=== PATIENT | male | born 1935 | race Caucasian/White ===

== ENCOUNTER 2022-03-05 08:51 | Inpatient (IN) | payer OTHER ==
[~2022-03-05] VITALS: Ht 175.3 cm; Wt 103.4 kg
[2022-03-05 09:00] VITALS: BP_SYST 140
[2022-03-05 10:16] LABS: BASOPHILS % (AUTO) 0.4 % (0.0-2.0); EOSINOPHILS # (AUTO) 0.1 K/uL (0.0-0.4); HEMATOCRIT 32.2 % (36-54); HEMOGLOBIN 10.6 g/dL (14.0-18.0); LYMPHOCYTES # (AUTO) 0.9 K/uL (1.0-5.5); LYMPHOCYTES % (AUTO) 20.2 % (20.5-51.5); MEAN CORPUSCULAR HEMOGLOBIN 33 pg (27-31); MEAN CORPUSCULAR HGB CONC 33 % (32-36); MEAN CORPUSCULAR VOLUME 99 fL (79.0-98.0); MONOCYTES # (AUTO) 0.5 K/uL (0.0-1.0); MONOCYTES % (AUTO) 12.2 % (1.7-9.3); NEUTROPHILS # (AUTO) 2.8 K/uL (1.8-7.7); NEUTROPHILS % (AUTO) 65.2 % (40.0-70.0); PLATELET COUNT (AUTO) 120 K/uL (130-430); RED BLOOD CELL COUNT(AUTO) 3.26 MIL/uL (4.2-6.2); RED CELL DISTRIBUTION WIDTH 14.8 % (9.0-15.0); WHITE BLOOD COUNT (AUTO) 4.2 K/uL (4.8-10.8)
[2022-03-05 10:33] LABS: ANION GAP 7 (5-15); CALCIUM 8.9 mg/dL (8.4-11.0); CHLORIDE 112 mmol/L (98-107); CREATININE 1.12 mg/dL (0.55-1.30); GLUCOSE 95 mg/dL (70-99); UREA NITROGEN, BLOOD 26 mg/dL (8-21)
[2022-03-05 10:38] LABS: ALANINE AMINOTRANSFERASE 6 U/L (12-78); ALBUMIN 3.3 g/dL (3.4-4.8); ASPARTATE AMINOTRANSFERASE 32 U/L (10-37); C-REACTIVE PROTEIN QUANT 1.3 mg/dL (0-0.5); TOTAL BILIRUBIN 1.7 mg/dL (0.0-1.0)
[2022-03-05] MEDS ORDERED: MORPHINE 4 MG INJ. 4 MG/ML VIAL IM ONE (11:00)
[2022-03-05] MEDS ORDERED: CARB1TAB33 PO (12:47)
[2022-03-05] MEDS ORDERED: APIX5TAB PO (12:47)
[2022-03-05] MEDS ORDERED: CILO100T3 PO (12:47)
[2022-03-05] MEDS ORDERED: HYT1 PO (12:47)
[2022-03-05] MEDS ORDERED: AMOX250S64 PO (12:47)
[2022-03-05] MEDS ORDERED: LIP20 PO (12:57)
[2022-03-05] MEDS ORDERED: LISI20TA30 PO (12:57)
[2022-03-05] MEDS ORDERED: FUROSEMIDE 100 MG in D5W 90 ML IV SCH (14:30)
[2022-03-05] MEDS ORDERED: ISOSORBIDE MONONITRATE 30 MG TAB.ER.24H PO ONE (17:00)
[2022-03-05] MEDS ORDERED: HYDROmorphone 1 MG/ML INJ. CARTRIDGE IVP ONE (18:45)
[2022-03-05] MEDS ORDERED: HYDROmorphone 1 MG/ML INJ. CARTRIDGE ONE (19:11)
[2022-03-05] MEDS ORDERED: ATORVASTATIN 20 MG TABLET PO SCH (21:00)
[2022-03-05] MEDS ORDERED: CEFAZOLIN 2 GM IVPB PREMIX 100 ML IV ONE (22:40)
[2022-03-05] MEDS: TERAZOSIN HCL 5 MG CAPSULE (HYTRIN) PO SCH (23:19)
[2022-03-05] MEDS: ceFAZolin SODIUM 2 GM in D5W 100 ML IV SCH (23:19)
[2022-03-05] MEDS: CARBIDOPA/LEVODOPA 25/100 MG TABLET PO SCH (23:20)
[2022-03-05] MEDS: ATORVASTATIN 20 MG TABLET PO SCH (23:20)
[2022-03-06] VITALS: BP_SYST 137
[2022-03-06] MEDS: ceFAZolin SODIUM 2 GM in D5W 100 ML IV SCH ×3 (05:23→21:37)
[2022-03-06 08:10] VITALS: BP_SYST 128
[2022-03-06 08:20] LABS: BASOPHILS % (AUTO) 0.6 % (0.0-2.0); EOSINOPHILS # (AUTO) 0.1 K/uL (0.0-0.4); EOSINOPHILS % (AUTO) 1.4 % (0.0-4.0); HEMATOCRIT 31.3 % (36-54); HEMOGLOBIN 10.3 g/dL (14.0-18.0); LYMPHOCYTES % (AUTO) 18.6 % (20.5-51.5); MEAN CORPUSCULAR HEMOGLOBIN 32 pg (27-31); MEAN CORPUSCULAR HGB CONC 33 % (32-36); MONOCYTES # (AUTO) 0.7 K/uL (0.0-1.0); MONOCYTES % (AUTO) 13.8 % (1.7-9.3); NEUTROPHILS # (AUTO) 3.4 K/uL (1.8-7.7); NEUTROPHILS % (AUTO) 65.6 % (40.0-70.0); PLATELET COUNT (AUTO) 135 K/uL (130-430); RED BLOOD CELL COUNT(AUTO) 3.21 MIL/uL (4.2-6.2); RED CELL DISTRIBUTION WIDTH 14.5 % (9.0-15.0); WHITE BLOOD COUNT (AUTO) 5.2 K/uL (4.8-10.8)
[2022-03-06 08:22] LABS: ANION GAP 8 (5-15); CALCIUM 8.9 mg/dL (8.4-11.0); CHLORIDE 105 mmol/L (98-107); CREATININE 1.51 mg/dL (0.55-1.30); GLUCOSE 93 mg/dL (70-99); UREA NITROGEN, BLOOD 27 mg/dL (8-21)
[2022-03-06 08:29] LABS: MEAN CORPUSCULAR VOLUME 97 fL (79.0-98.0)
[2022-03-06] MEDS: ISOSORBIDE MONONITRATE 30 MG TAB.ER.24H PO SCH (09:00)
[2022-03-06] MEDS: lisinopriL 20 MG TABLET PO SCH (09:00)
[2022-03-06] MEDS: LIDOCAINE PATCH 5% 1 EA TP SCH (09:52)
[2022-03-06] MEDS: CARBIDOPA/LEVODOPA 25/100 MG TABLET PO SCH (09:52)
[2022-03-06] MEDS ORDERED: APIXABAN 2.5 MG TABLET PO ONE (11:30)
[2022-03-06 11:40] VITALS: BP_SYST 126
[2022-03-06] MEDS ORDERED: KETOROLAC TROMETHAMINE 15 MG VIAL IVP ONE (12:45)
[2022-03-06 15:55] VITALS: BP_SYST 118
[2022-03-06] MEDS: CARBIDOPA/LEVODOPA 25/250 MG TABLET PO SCH ×2 (16:01→21:36)
[2022-03-06] MEDS: BUMEX 1 MG/4 ML VIAL IVP SCH ×2 (16:02→21:37)
[2022-03-06] MEDS ORDERED: HONEY WOUND DRESSING 1 EACH TP ONE (16:30)
[2022-03-06 20:00] VITALS: BP_SYST 116
[2022-03-06] MEDS: TERAZOSIN HCL 5 MG CAPSULE (HYTRIN) PO SCH (21:36)
[2022-03-06] MEDS: ATORVASTATIN 20 MG TABLET PO SCH (21:36)
[2022-03-06] MEDS: APIXABAN 2.5 MG TABLET PO SCH (21:38)
[2022-03-07] VITALS: BP_SYST 116
[2022-03-07] MEDS: BUMEX 1 MG/4 ML VIAL IVP SCH ×2 (06:25→14:30)
[2022-03-07] MEDS: ceFAZolin SODIUM 2 GM in D5W 100 ML IV SCH ×3 (06:27→21:34)
[2022-03-07 08:00] VITALS: BP_SYST 113
[2022-03-07] MEDS: ISOSORBIDE MONONITRATE 30 MG TAB.ER.24H PO SCH (09:00)
[2022-03-07] MEDS: lisinopriL 20 MG TABLET PO SCH (09:00)
[2022-03-07] MEDS: HONEY WOUND DRESSING 1 EACH TP SCH (09:00)
[2022-03-07] MEDS: CARBIDOPA/LEVODOPA 25/250 MG TABLET PO SCH ×3 (09:59→21:35)
[2022-03-07] MEDS: APIXABAN 2.5 MG TABLET PO SCH ×2 (09:59→21:36)
[2022-03-07] MEDS: LIDOCAINE PATCH 5% 1 EA TP SCH (09:59)
[2022-03-07 11:53] VITALS: BP_SYST 118
[2022-03-07 16:34] VITALS: BP_SYST 123
[2022-03-07 20:00] VITALS: BP_SYST 106
[2022-03-07] MEDS: TERAZOSIN HCL 5 MG CAPSULE (HYTRIN) PO SCH (21:35)
[2022-03-07] MEDS: ATORVASTATIN 20 MG TABLET PO SCH (21:35)
[2022-03-08 00:24] VITALS: BP_SYST 111
[2022-03-08] MEDS: ceFAZolin SODIUM 2 GM in D5W 100 ML IV SCH ×3 (06:09→21:30)
[2022-03-08 08:00] VITALS: BP_SYST 129
[2022-03-08 08:43] LABS: ANION GAP 9 (5-15); CALCIUM 8.4 mg/dL (8.4-11.0); CHLORIDE 106 mmol/L (98-107); CREATININE 1.14 mg/dL (0.55-1.30); GLUCOSE 99 mg/dL (70-99); UREA NITROGEN, BLOOD 28 mg/dL (8-21)
[2022-03-08] MEDS: ISOSORBIDE MONONITRATE 30 MG TAB.ER.24H PO SCH (09:00)
[2022-03-08] MEDS: HONEY WOUND DRESSING 1 EACH TP SCH (09:00)
[2022-03-08] MEDS: LIDOCAINE PATCH 5% 1 EA TP SCH (09:09)
[2022-03-08] MEDS ORDERED: LIDOCAINE PATCH 5% 1 EA TP ONE (09:15)
[2022-03-08] MEDS ORDERED: REGADENOSON 0.4 MG/5 ML SYRINGE IVP ONE (10:00)
[2022-03-08 11:45] VITALS: BP_SYST 118
[2022-03-08] MEDS: CARBIDOPA/LEVODOPA 25/250 MG TABLET PO SCH ×3 (14:06→21:27)
[2022-03-08] MEDS: APIXABAN 2.5 MG TABLET PO SCH ×2 (14:08→21:27)
[2022-03-08] MEDS ORDERED: BUMETANIDE 1 MG TABLET PO ONE (15:00)
[2022-03-08 15:35] VITALS: BP_SYST 124
[2022-03-08 20:00] VITALS: BP_SYST 134
[2022-03-08] MEDS: ATORVASTATIN 20 MG TABLET PO SCH (21:24)
[2022-03-08] MEDS: TERAZOSIN HCL 5 MG CAPSULE (HYTRIN) PO SCH (21:26)
[2022-03-09 00:55] VITALS: BP_SYST 124
[2022-03-09] MEDS: ceFAZolin SODIUM 2 GM in D5W 100 ML IV SCH ×3 (05:33→21:25)
[2022-03-09 08:00] VITALS: BP_SYST 131
[2022-03-09 08:38] LABS: ANION GAP 4 (5-15); CALCIUM 8.9 mg/dL (8.4-11.0); CHLORIDE 104 mmol/L (98-107); CREATININE 1.22 mg/dL (0.55-1.30); GLUCOSE 97 mg/dL (70-99); UREA NITROGEN, BLOOD 28 mg/dL (8-21)
[2022-03-09] MEDS: CARBIDOPA/LEVODOPA 25/250 MG TABLET PO SCH ×3 (09:20→21:25)
[2022-03-09] MEDS: ISOSORBIDE MONONITRATE 30 MG TAB.ER.24H PO SCH (09:21)
[2022-03-09] MEDS: BUMETANIDE 1 MG TABLET PO SCH (09:25)
[2022-03-09] MEDS: traMADol HCL HCL 50 MG TABLET (ULTRAM) PO PRN (09:25)
[2022-03-09] MEDS: LIDOCAINE PATCH 5% 1 EA TP SCH (09:26)
[2022-03-09] MEDS: APIXABAN 2.5 MG TABLET PO SCH ×2 (09:27→21:24)
[2022-03-09] MEDS: HONEY WOUND DRESSING 1 EACH TP SCH (09:37)
[2022-03-09 12:25] VITALS: BP_SYST 119
[2022-03-09 16:48] VITALS: BP_SYST 102
[2022-03-09 19:50] VITALS: BP_SYST 115
[2022-03-09] MEDS: TERAZOSIN HCL 5 MG CAPSULE (HYTRIN) PO SCH (21:00)
[2022-03-09] MEDS: ATORVASTATIN 20 MG TABLET PO SCH (21:24)
[2022-03-10 01:07] VITALS: BP_SYST 112
[2022-03-10] MEDS: ceFAZolin SODIUM 2 GM in D5W 100 ML IV SCH ×2 (05:14→14:00)
[2022-03-10 07:52] VITALS: BP_SYST 118
[2022-03-10] MEDS: CARBIDOPA/LEVODOPA 25/250 MG TABLET PO SCH (08:33)
[2022-03-10] MEDS: LIDOCAINE PATCH 5% 1 EA TP SCH (08:33)
[2022-03-10] MEDS: BUMETANIDE 1 MG TABLET PO SCH (08:33)
[2022-03-10] MEDS: ISOSORBIDE MONONITRATE 30 MG TAB.ER.24H PO SCH (08:34)
[2022-03-10] MEDS: traMADol HCL HCL 50 MG TABLET (ULTRAM) PO PRN (08:36)
[2022-03-10] MEDS: APIXABAN 2.5 MG TABLET PO SCH (08:36)
[2022-03-10] MEDS: HONEY WOUND DRESSING 1 EACH TP SCH (08:39)
[2022-03-10] MEDS ORDERED: ISOS30TA85 PO (11:52)
[2022-03-10] MEDS ORDERED: DIA250 PO (11:52)
[2022-03-10] MEDS ORDERED: BUME1TAB8 PO (11:52)
[2022-03-10 13:16] VITALS: BP_SYST 118
[2022-03-11] MEDS ORDERED: acetaZOLAMIDE 250 MG TABLET (DIAMOX) PO SCH (09:00)
== END 2022-03-10 14:35 | DRG 291 ==
LOC: SED 08:51 → SMU 14:06 → STU 03-06 22:17
PROVIDERS: ADMIT Specialist; ATTEND Specialist
DX: I13.0 Hypertensive heart and chronic kidney disease with heart failure and stage 1 through stage 4 chronic kidney disease, or unspecified chronic kidney disease (principal); I50.31 Acute diastolic (congestive) heart failure; L03.115 Cellulitis of right lower limb; J44.1 Chronic obstructive pulmonary disease with (acute) exacerbation; L97.819 Non-pressure chronic ulcer of other part of right lower leg with unspecified severity; N17.9 Acute kidney failure, unspecified; S81.811A Laceration without foreign body, right lower leg, initial encounter; G20 Parkinson's disease; I73.9 Peripheral vascular disease, unspecified; Z20.822 Contact with and (suspected) exposure to COVID-19; N18.30 Chronic kidney disease, stage 3 unspecified; N40.0 Benign prostatic hyperplasia without lower urinary tract symptoms; E78.5 Hyperlipidemia, unspecified; S81.812A Laceration without foreign body, left lower leg, initial encounter; I48.91 Unspecified atrial fibrillation; I25.5 Ischemic cardiomyopathy; I71.40 Abdominal aortic aneurysm, without rupture, unspecified; Z86.718 Personal history of other venous thrombosis and embolism
CPT/HCPCS: 36415; 71045; 73564; 73590-TC; 76705; 80048; 80053; 83605; 83735; 83880; 84484; 85025; 85379; 86140; 93005; 93017; 93306; 93880; 93923; 93970; 97112-GP; 97116-GP; 97163-GP; 97530-GP; 99285; A9500; G0378; J0690; J1170; J1885; J1940; J2270; J2785; J3490; J7060

== ENCOUNTER 2022-06-05 06:03 | Emergency (ER) | payer OTHER ==
[~2022-06-05 06:03] MED LIST: AMOX250S64 PO; APIX5TAB PO; BUME1TAB8 PO; CARB1TAB33 PO; CILO100T3 PO; DIA250 PO; HYT1 PO; ISOS30TA85 PO; LIP20 PO
[2022-06-05 06:30] VITALS: BP_SYST 122
[2022-06-05] MEDS ORDERED: LIDOCAINE PATCH 5% 1 EA TP ONE (06:30)
[2022-06-05] MEDS ORDERED: HYDROcodone/ACETAMIN 5-325 MG TAB (NORCO/ VICODIN) PO ONE (06:30)
[2022-06-05] MEDS ORDERED: methocarbamoL 500 MG TABLET PO ONE (06:30)
[2022-06-05 06:32] VITALS: BP_SYST 122
[2022-06-05] MEDS ORDERED: METH-634 PO (06:58)
[2022-06-05] MEDS ORDERED: OXYC-128 PO (06:58)
[2022-06-05] MEDS ORDERED: LIDO1ADH22 TP (06:58)
[2022-06-05] MEDS ORDERED: ACET-2634 PO (06:58)
== END 2022-06-05 07:37 | disposition home or self-care (01) ==
LOC: SED 06:03
DX: R00.1 Bradycardia, unspecified (principal); M25.552 Pain in left hip; M54.50 Low back pain, unspecified; Z79.01 Long term (current) use of anticoagulants; Z79.899 Other long term (current) drug therapy
CPT/HCPCS: 99283

== ENCOUNTER 2022-06-05 17:28 | Inpatient (IN) | payer OTHER ==
[~2022-06-05] VITALS: Ht 177.8 cm; Wt 87.7 kg
[~2022-06-05 17:28] MED LIST changes: +ACET-2634 PO; +LIDO1ADH22 TP; +METH-634 PO; +OXYC-128 PO
[2022-06-05 17:30] VITALS: BP_SYST 128
[2022-06-05 19:33] LABS: BASOPHILS % (AUTO) 0.5 % (0.0-2.0); EOSINOPHILS # (AUTO) 0.2 K/uL (0.0-0.4); EOSINOPHILS % (AUTO) 3.2 % (0.0-4.0); HEMATOCRIT 36.4 % (36-54); LYMPHOCYTES # (AUTO) 0.9 K/uL (1.0-5.5); LYMPHOCYTES % (AUTO) 17.5 % (20.5-51.5); MEAN CORPUSCULAR HEMOGLOBIN 33 pg (27-31); MEAN CORPUSCULAR HGB CONC 33 % (32-36); MEAN CORPUSCULAR VOLUME 99 fL (79.0-98.0); MONOCYTES # (AUTO) 0.7 K/uL (0.0-1.0); MONOCYTES % (AUTO) 14.2 % (1.7-9.3); NEUTROPHILS # (AUTO) 3.4 K/uL (1.8-7.7); NEUTROPHILS % (AUTO) 64.6 % (40.0-70.0); PLATELET COUNT (AUTO) 115 K/uL (130-430); RED BLOOD CELL COUNT(AUTO) 3.67 MIL/uL (4.2-6.2); RED CELL DISTRIBUTION WIDTH 14.5 % (9.0-15.0); WHITE BLOOD COUNT (AUTO) 5.2 K/uL (4.8-10.8)
[2022-06-05 19:47] LABS: ALANINE AMINOTRANSFERASE 9 U/L (12-78); ALBUMIN 3.4 g/dL (3.4-4.8); ANION GAP 7 (5-15); ASPARTATE AMINOTRANSFERASE 34 U/L (10-37); CALCIUM 8.8 mg/dL (8.4-11.0); CHLORIDE 104 mmol/L (98-107); CREATININE 1.56 mg/dL (0.55-1.30); GLUCOSE 107 mg/dL (70-99); TOTAL BILIRUBIN 0.9 mg/dL (0.0-1.0); UREA NITROGEN, BLOOD 40 mg/dL (8-21)
[2022-06-05] MEDS ORDERED: FUROSEMIDE 40 MG/4 ML VIAL IVP ONE (20:00)
[2022-06-05] MEDS ORDERED: FUROSEMIDE 100 MG/10 ML VIAL IVP ONE (21:00)
[2022-06-05] MEDS ORDERED: MORPHINE 4 MG INJ. 4 MG/ML VIAL IVP ONE (21:00)
[2022-06-06] MEDS ORDERED: FUROSEMIDE 40 MG/4 ML VIAL IVP SCH (09:00)
[2022-06-06] MEDS ORDERED: OXYCODONE/ACETAMINOPHEN 5-325 TABLET PO PRN (09:45)
[2022-06-06] MEDS ORDERED: NON-FORMULARY MEDICATION (Apixaban (Eliquis) 5 MG) PO SCH (15:15)
[2022-06-06 16:42] VITALS: BP_SYST 124
[2022-06-06] MEDS: cefTRIAXone 1 GM in D5W 50 ML IV SCH (16:49)
[2022-06-06] MEDS: CARBIDOPA/LEVODOPA 25/100 MG TABLET PO SCH ×2 (16:49→20:49)
[2022-06-06] MEDS ORDERED: BUMETANIDE 1 MG TABLET PO ONE (17:00)
[2022-06-06] MEDS ORDERED: LIDOCAINE PATCH 5% 1 EA TP ONE (17:00)
[2022-06-06 20:00] VITALS: BP_SYST 133
[2022-06-06] MEDS: APIXABAN 2.5 MG TABLET PO SCH (20:48)
[2022-06-06] MEDS: TERAZOSIN HCL 5 MG CAPSULE (HYTRIN) PO SCH (20:49)
[2022-06-06] MEDS: DOCUSATE SODIUM 100 MG CAPSULE PO SCH (20:50)
[2022-06-07 00:18] VITALS: BP_SYST 146
[2022-06-07 07:26] LABS: BASOPHILS % (AUTO) 0.3 % (0.0-2.0); EOSINOPHILS % (AUTO) 0.2 % (0.0-4.0); HEMATOCRIT 36.4 % (36-54); LYMPHOCYTES # (AUTO) 0.4 K/uL (1.0-5.5); MEAN CORPUSCULAR HEMOGLOBIN 32 pg (27-31); MEAN CORPUSCULAR HGB CONC 33 % (32-36); MEAN CORPUSCULAR VOLUME 98 fL (79.0-98.0); MONOCYTES # (AUTO) 0.9 K/uL (0.0-1.0); MONOCYTES % (AUTO) 14.1 % (1.7-9.3); NEUTROPHILS # (AUTO) 5.2 K/uL (1.8-7.7); NEUTROPHILS % (AUTO) 79.4 % (40.0-70.0); PLATELET COUNT (AUTO) 112 K/uL (130-430); RED BLOOD CELL COUNT(AUTO) 3.72 MIL/uL (4.2-6.2); RED CELL DISTRIBUTION WIDTH 14.7 % (9.0-15.0); WHITE BLOOD COUNT (AUTO) 6.6 K/uL (4.8-10.8)
[2022-06-07 08:02] LABS: ANION GAP 9 (5-15); CALCIUM 8.5 mg/dL (8.4-11.0); CHLORIDE 104 mmol/L (98-107); CREATININE 1.65 mg/dL (0.55-1.30); GLUCOSE 128 mg/dL (70-99); UREA NITROGEN, BLOOD 41 mg/dL (8-21)
[2022-06-07 08:09] LABS: ALBUMIN 3.2 g/dL (3.4-4.8); ASPARTATE AMINOTRANSFERASE 34 U/L (10-37); TOTAL BILIRUBIN 1.6 mg/dL (0.0-1.0)
[2022-06-07] MEDS: DOCUSATE SODIUM 100 MG CAPSULE PO SCH ×3 (09:00→21:18)
[2022-06-07 09:13] LABS: ALANINE AMINOTRANSFERASE 15 U/L (12-78)
[2022-06-07] MEDS: BUMETANIDE 1 MG TABLET PO SCH (09:15)
[2022-06-07] MEDS: LIDOCAINE PATCH 5% 1 EA TP SCH (09:15)
[2022-06-07] MEDS: CARBIDOPA/LEVODOPA 25/100 MG TABLET PO SCH ×3 (09:17→21:18)
[2022-06-07] MEDS: ISOSORBIDE MONONITRATE 30 MG TAB.ER.24H PO SCH (09:17)
[2022-06-07] MEDS: FUROSEMIDE 40 MG/4 ML VIAL IVP SCH (09:17)
[2022-06-07] MEDS: APIXABAN 2.5 MG TABLET PO SCH ×2 (09:18→21:21)
[2022-06-07 11:28] VITALS: BP_SYST 129
[2022-06-07] MEDS: cefTRIAXone 1 GM in D5W 50 ML IV SCH (15:20)
[2022-06-07 15:27] VITALS: BP_SYST 130
[2022-06-07 20:00] VITALS: BP_SYST 116
[2022-06-07] MEDS: TERAZOSIN HCL 5 MG CAPSULE (HYTRIN) PO SCH (21:18)
[2022-06-08 07:30] VITALS: BP_SYST 131
[2022-06-08] MEDS: ISOSORBIDE MONONITRATE 30 MG TAB.ER.24H PO SCH (08:35)
[2022-06-08] MEDS: DOCUSATE SODIUM 100 MG CAPSULE PO SCH ×2 (08:36→22:09)
[2022-06-08] MEDS: CARBIDOPA/LEVODOPA 25/100 MG TABLET PO SCH ×3 (08:36→22:10)
[2022-06-08] MEDS: LIDOCAINE PATCH 5% 1 EA TP SCH (08:37)
[2022-06-08] MEDS: BUMETANIDE 1 MG TABLET PO SCH (08:38)
[2022-06-08] MEDS: APIXABAN 2.5 MG TABLET PO SCH ×2 (08:43→22:11)
[2022-06-08] MEDS: FUROSEMIDE 40 MG/4 ML VIAL IVP SCH (09:00)
[2022-06-08 11:27] VITALS: BP_SYST 107
[2022-06-08] MEDS: cefTRIAXone 1 GM in D5W 50 ML IV SCH (15:40)
[2022-06-08 16:14] VITALS: BP_SYST 121
[2022-06-08 20:00] VITALS: BP_SYST 111
[2022-06-08] MEDS: TERAZOSIN HCL 5 MG CAPSULE (HYTRIN) PO SCH (22:10)
[2022-06-09 02:17] VITALS: BP_SYST 124
[2022-06-09 08:00] VITALS: BP_SYST 138
[2022-06-09 08:05] LABS: BASOPHILS % (AUTO) 0.2 % (0.0-2.0); EOSINOPHILS # (AUTO) 0.1 K/uL (0.0-0.4); EOSINOPHILS % (AUTO) 1.5 % (0.0-4.0); HEMATOCRIT 35.2 % (36-54); HEMOGLOBIN 11.8 g/dL (14.0-18.0); LYMPHOCYTES # (AUTO) 0.7 K/uL (1.0-5.5); LYMPHOCYTES % (AUTO) 10.6 % (20.5-51.5); MEAN CORPUSCULAR HEMOGLOBIN 33 pg (27-31); MEAN CORPUSCULAR HGB CONC 33 % (32-36); MEAN CORPUSCULAR VOLUME 98 fL (79.0-98.0); MONOCYTES # (AUTO) 0.9 K/uL (0.0-1.0); MONOCYTES % (AUTO) 14.7 % (1.7-9.3); NEUTROPHILS # (AUTO) 4.7 K/uL (1.8-7.7); PLATELET COUNT (AUTO) 121 K/uL (130-430); RED BLOOD CELL COUNT(AUTO) 3.58 MIL/uL (4.2-6.2); WHITE BLOOD COUNT (AUTO) 6.4 K/uL (4.8-10.8)
[2022-06-09 08:52] LABS: ALANINE AMINOTRANSFERASE 6 U/L (12-78); ALBUMIN 2.9 g/dL (3.4-4.8); ANION GAP 8 (5-15); ASPARTATE AMINOTRANSFERASE 20 U/L (10-37); CALCIUM 8.9 mg/dL (8.4-11.0); CHLORIDE 101 mmol/L (98-107); GLUCOSE 112 mg/dL (70-99); TOTAL BILIRUBIN 1.2 mg/dL (0.0-1.0); UREA NITROGEN, BLOOD 68 mg/dL (8-21)
[2022-06-09] MEDS: LIDOCAINE PATCH 5% 1 EA TP SCH (09:51)
[2022-06-09] MEDS: ISOSORBIDE MONONITRATE 30 MG TAB.ER.24H PO SCH (09:52)
[2022-06-09] MEDS: DOCUSATE SODIUM 100 MG CAPSULE PO SCH ×2 (09:52→20:45)
[2022-06-09] MEDS: BUMETANIDE 1 MG TABLET PO SCH (09:52)
[2022-06-09] MEDS: CARBIDOPA/LEVODOPA 25/100 MG TABLET PO SCH ×3 (09:52→20:46)
[2022-06-09] MEDS: APIXABAN 2.5 MG TABLET PO SCH ×2 (09:54→20:49)
[2022-06-09 11:27] VITALS: BP_SYST 133
[2022-06-09 15:29] VITALS: BP_SYST 128
[2022-06-09] MEDS: cefTRIAXone 1 GM in D5W 50 ML IV SCH (15:32)
[2022-06-09 15:53] LABS: BILIRUBIN,URINE NEGATIVE (NEGATIVE); BLOOD, URINE 3+ (NEGATIVE); COLOR,URINE RED (YELLOW); GLUCOSE,URINE NEGATIVE (NEGATIVE); KETONES,URINE NEGATIVE (NEGATIVE); LEUKOCYTE ESTERASE ,URINE 3+ (NEGATIVE); NITRITE, URINE NEGATIVE (NEGATIVE); PH,URINE 5.5 (5.0-8.0); PROTEIN URINE 2+ (NEGATIVE); UROBILINOGEN,URINE 0.2 (0.2-1.0)
[2022-06-09 15:55] LABS: CLARITY/URINE TURBID (CLEAR)
[2022-06-09 16:00] LABS: BACTERIA,URINE MANY /HPF (None Seen); MUCUS,URINE None Seen /LPF (None Seen); RBC,URINE >100 /HPF (0-3); WBC,URINE >100 /HPF (0-3)
[2022-06-09 19:00] VITALS: BP_SYST 113
[2022-06-09 20:00] VITALS: BP_SYST 113
[2022-06-09] MEDS: TERAZOSIN HCL 5 MG CAPSULE (HYTRIN) PO SCH (20:45)
[2022-06-09] MEDS: LANOLIN ALCOHOL/MO/W.PET/CERES 57 GM CREAM..G. TP SCH (20:46)
[2022-06-10] VITALS: BP_SYST 118
[2022-06-10 06:54] LABS: BASOPHILS % (AUTO) 0.3 % (0.0-2.0); EOSINOPHILS # (AUTO) 0.2 K/uL (0.0-0.4); EOSINOPHILS % (AUTO) 4.5 % (0.0-4.0); HEMATOCRIT 32.3 % (36-54); HEMOGLOBIN 10.8 g/dL (14.0-18.0); LYMPHOCYTES # (AUTO) 1.3 K/uL (1.0-5.5); LYMPHOCYTES % (AUTO) 26.8 % (20.5-51.5); MEAN CORPUSCULAR HEMOGLOBIN 33 pg (27-31); MEAN CORPUSCULAR HGB CONC 33 % (32-36); MEAN CORPUSCULAR VOLUME 98 fL (79.0-98.0); MONOCYTES # (AUTO) 0.6 K/uL (0.0-1.0); MONOCYTES % (AUTO) 12.5 % (1.7-9.3); NEUTROPHILS # (AUTO) 2.7 K/uL (1.8-7.7); NEUTROPHILS % (AUTO) 55.9 % (40.0-70.0); PLATELET COUNT (AUTO) 123 K/uL (130-430); RED BLOOD CELL COUNT(AUTO) 3.28 MIL/uL (4.2-6.2); RED CELL DISTRIBUTION WIDTH 14.6 % (9.0-15.0); WHITE BLOOD COUNT (AUTO) 4.9 K/uL (4.8-10.8)
[2022-06-10 07:20] LABS: ALANINE AMINOTRANSFERASE 8 U/L (12-78); ALBUMIN 2.4 g/dL (3.4-4.8); ANION GAP 5 (5-15); ASPARTATE AMINOTRANSFERASE 32 U/L (10-37); C-REACTIVE PROTEIN QUANT 17.8 mg/dL (0-0.5); CALCIUM 8.3 mg/dL (8.4-11.0); CHLORIDE 105 mmol/L (98-107); CREATININE 1.72 mg/dL (0.55-1.30); GLUCOSE 92 mg/dL (70-99); PHOSPHORUS 3.3 mg/dL (2.7-4.5); TOTAL BILIRUBIN 0.8 mg/dL (0.0-1.0); UREA NITROGEN, BLOOD 59 mg/dL (8-21)
[2022-06-10 08:00] VITALS: BP_SYST 96
[2022-06-10 08:22] LABS: ERYTHROCYTE SEDIMENTATION RATE 46 MM/HR (0-15)
[2022-06-10] MEDS: BALSAM PERU/CASTOR OIL 56.7 GM OINT...G. TP SCH (09:00)
[2022-06-10] MEDS: FUROSEMIDE 40 MG TABLET PO SCH (09:00)
[2022-06-10] MEDS: LANOLIN ALCOHOL/MO/W.PET/CERES 57 GM CREAM..G. TP SCH ×2 (09:00→21:24)
[2022-06-10] MEDS: LIDOCAINE PATCH 5% 1 EA TP SCH (09:18)
[2022-06-10] MEDS: CARBIDOPA/LEVODOPA 25/100 MG TABLET PO SCH ×3 (09:19→21:20)
[2022-06-10] MEDS: ISOSORBIDE MONONITRATE 30 MG TAB.ER.24H PO SCH (09:19)
[2022-06-10] MEDS: DOCUSATE SODIUM 100 MG CAPSULE PO SCH ×2 (09:19→21:20)
[2022-06-10] MEDS: APIXABAN 2.5 MG TABLET PO SCH ×2 (09:20→21:29)
[2022-06-10] MEDS: BUMETANIDE 1 MG TABLET PO SCH (09:26)
[2022-06-10 11:28] VITALS: BP_SYST 111
[2022-06-10] MEDS: cefTRIAXone 1 GM in D5W 50 ML IV SCH (14:19)
[2022-06-10 15:18] VITALS: BP_SYST 115
[2022-06-10 20:00] VITALS: BP_SYST 128
[2022-06-10] MEDS: TERAZOSIN HCL 5 MG CAPSULE (HYTRIN) PO SCH (21:24)
[2022-06-11 00:15] VITALS: BP_SYST 113
[2022-06-11 06:38] LABS: BASOPHILS % (AUTO) 0.6 % (0.0-2.0); EOSINOPHILS # (AUTO) 0.3 K/uL (0.0-0.4); EOSINOPHILS % (AUTO) 5.1 % (0.0-4.0); HEMATOCRIT 33.1 % (36-54); LYMPHOCYTES # (AUTO) 1.4 K/uL (1.0-5.5); LYMPHOCYTES % (AUTO) 27.4 % (20.5-51.5); MEAN CORPUSCULAR HEMOGLOBIN 33 pg (27-31); MEAN CORPUSCULAR HGB CONC 33 % (32-36); MEAN CORPUSCULAR VOLUME 99 fL (79.0-98.0); MONOCYTES # (AUTO) 0.6 K/uL (0.0-1.0); MONOCYTES % (AUTO) 12.5 % (1.7-9.3); NEUTROPHILS # (AUTO) 2.8 K/uL (1.8-7.7); NEUTROPHILS % (AUTO) 54.4 % (40.0-70.0); PLATELET COUNT (AUTO) 140 K/uL (130-430); RED BLOOD CELL COUNT(AUTO) 3.35 MIL/uL (4.2-6.2); RED CELL DISTRIBUTION WIDTH 14.9 % (9.0-15.0); RETICULOCYTE COUNT 1.2 % (0.5-1.5); WHITE BLOOD COUNT (AUTO) 5.1 K/uL (4.8-10.8)
[2022-06-11 07:12] LABS: ANION GAP 6 (5-15); CALCIUM 8.1 mg/dL (8.4-11.0); CHLORIDE 104 mmol/L (98-107); CREATININE 1.37 mg/dL (0.55-1.30); GLUCOSE 109 mg/dL (70-99); PHOSPHORUS 2.9 mg/dL (2.7-4.5); UREA NITROGEN, BLOOD 46 mg/dL (8-21)
[2022-06-11 07:31] LABS: TOTAL IRON BIND. CAPACITY 140 ug/dL (250-450)
[2022-06-11 08:00] VITALS: BP_SYST 124
[2022-06-11] MEDS: LIDOCAINE PATCH 5% 1 EA TP SCH (08:48)
[2022-06-11] MEDS: FUROSEMIDE 40 MG TABLET PO SCH (08:48)
[2022-06-11] MEDS: ISOSORBIDE MONONITRATE 30 MG TAB.ER.24H PO SCH (08:48)
[2022-06-11] MEDS: CARBIDOPA/LEVODOPA 25/100 MG TABLET PO SCH ×3 (08:48→20:56)
[2022-06-11] MEDS: DOCUSATE SODIUM 100 MG CAPSULE PO SCH ×2 (08:48→21:03)
[2022-06-11] MEDS: BUMETANIDE 1 MG TABLET PO SCH (08:49)
[2022-06-11] MEDS: APIXABAN 2.5 MG TABLET PO SCH ×2 (08:50→20:57)
[2022-06-11] MEDS: LANOLIN ALCOHOL/MO/W.PET/CERES 57 GM CREAM..G. TP SCH ×2 (09:03→21:03)
[2022-06-11] MEDS: BALSAM PERU/CASTOR OIL 56.7 GM OINT...G. TP SCH (09:03)
[2022-06-11] MEDS ORDERED: TAMSULOSIN HCL 0.4 MG CAP PO ONE (09:45)
[2022-06-11] MEDS ORDERED: THEOPHYLLINE ANHYDROUS 80 MG/15 ML UDC PO ONE (10:00)
[2022-06-11 11:37] VITALS: BP_SYST 118
[2022-06-11 15:27] VITALS: BP_SYST 120
[2022-06-11] MEDS: cefTRIAXone 1 GM in D5W 50 ML IV SCH (16:00)
[2022-06-11 20:00] VITALS: BP_SYST 97
[2022-06-11] MEDS: TERAZOSIN HCL 5 MG CAPSULE (HYTRIN) PO SCH (21:00)
[2022-06-12] VITALS: BP_SYST 112
[2022-06-12 07:47] LABS: BASOPHILS % (AUTO) 0.6 % (0.0-2.0); EOSINOPHILS # (AUTO) 0.3 K/uL (0.0-0.4); EOSINOPHILS % (AUTO) 5.6 % (0.0-4.0); HEMATOCRIT 33.4 % (36-54); LYMPHOCYTES # (AUTO) 1.6 K/uL (1.0-5.5); LYMPHOCYTES % (AUTO) 30.5 % (20.5-51.5); MEAN CORPUSCULAR HEMOGLOBIN 33 pg (27-31); MEAN CORPUSCULAR HGB CONC 33 % (32-36); MEAN CORPUSCULAR VOLUME 99 fL (79.0-98.0); MONOCYTES # (AUTO) 0.7 K/uL (0.0-1.0); MONOCYTES % (AUTO) 13.7 % (1.7-9.3); NEUTROPHILS # (AUTO) 2.6 K/uL (1.8-7.7); NEUTROPHILS % (AUTO) 49.6 % (40.0-70.0); PLATELET COUNT (AUTO) 147 K/uL (130-430); RED BLOOD CELL COUNT(AUTO) 3.39 MIL/uL (4.2-6.2); RED CELL DISTRIBUTION WIDTH 14.3 % (9.0-15.0); WHITE BLOOD COUNT (AUTO) 5.2 K/uL (4.8-10.8)
[2022-06-12 08:00] VITALS: BP_SYST 122
[2022-06-12 08:06] LABS: ALANINE AMINOTRANSFERASE 18 U/L (12-78); ALBUMIN 2.4 g/dL (3.4-4.8); ANION GAP 5 (5-15); ASPARTATE AMINOTRANSFERASE 34 U/L (10-37); C-REACTIVE PROTEIN QUANT 5.5 mg/dL (0-0.5); CHLORIDE 105 mmol/L (98-107); CREATININE 1.26 mg/dL (0.55-1.30); GLUCOSE 94 mg/dL (70-99); TOTAL BILIRUBIN 0.8 mg/dL (0.0-1.0); UREA NITROGEN, BLOOD 36 mg/dL (8-21)
[2022-06-12 08:50] LABS: ERYTHROCYTE SEDIMENTATION RATE 33 MM/HR (0-15)
[2022-06-12] MEDS ORDERED: THEOPHYLLINE ANHYDROUS 80 MG/15 ML UDC PO SCH (09:00)
[2022-06-12] MEDS: CARBIDOPA/LEVODOPA 25/100 MG TABLET PO SCH ×3 (09:21→21:29)
[2022-06-12] MEDS: DOCUSATE SODIUM 100 MG CAPSULE PO SCH ×2 (09:21→21:29)
[2022-06-12] MEDS: TAMSULOSIN HCL 0.4 MG CAP PO SCH (09:21)
[2022-06-12] MEDS: THEOPHYLLINE ANHYDROUS 80 MG/15 ML UDC PO SCH ×2 (09:21→21:45)
[2022-06-12] MEDS: FUROSEMIDE 40 MG TABLET PO SCH (09:22)
[2022-06-12] MEDS: ISOSORBIDE MONONITRATE 30 MG TAB.ER.24H PO SCH (09:22)
[2022-06-12] MEDS: BUMETANIDE 1 MG TABLET PO SCH (09:22)
[2022-06-12] MEDS: LIDOCAINE PATCH 5% 1 EA TP SCH (09:23)
[2022-06-12] MEDS: LANOLIN ALCOHOL/MO/W.PET/CERES 57 GM CREAM..G. TP SCH ×2 (09:24→21:33)
[2022-06-12] MEDS: BALSAM PERU/CASTOR OIL 56.7 GM OINT...G. TP SCH (09:24)
[2022-06-12] MEDS: APIXABAN 2.5 MG TABLET PO SCH ×2 (09:31→21:30)
[2022-06-12 11:28] VITALS: BP_SYST 133
[2022-06-12] MEDS ORDERED: BUMEX 1 MG/4 ML VIAL IVP ONE (14:45)
[2022-06-12 15:12] VITALS: BP_SYST 121
[2022-06-12] MEDS: cefTRIAXone 1 GM in D5W 50 ML IV SCH (18:45)
[2022-06-12 20:00] VITALS: BP_SYST 116
[2022-06-12] MEDS: TERAZOSIN HCL 5 MG CAPSULE (HYTRIN) PO SCH (21:32)
[2022-06-12] MEDS ORDERED: 0.45% NS 500 ML IV ONE (22:00)
[2022-06-12] MEDS ORDERED: NALOXONE HCL 0.4 MG/ML AMP (NARCAN) IVP PRN (22:00)
[2022-06-12] MEDS: HYDROcodone/ACETAMIN 5-325 MG TAB (NORCO/ VICODIN) PO PRN (23:02)
[2022-06-13] VITALS: BP_SYST 120
[2022-06-13 01:07] LABS: % FREE PSA 21.6 % (.); FOLATE (FOLIC ACID) 9.6 ng/mL (>3.0); FREE PSA 1.34 ng/mL; PROSTATE SPECIFIC AG TOTAL 6.2 ng/mL (0.0-4.0)
[2022-06-13 07:48] LABS: BASOPHILS % (AUTO) 0.5 % (0.0-2.0); EOSINOPHILS # (AUTO) 0.3 K/uL (0.0-0.4); EOSINOPHILS % (AUTO) 4.9 % (0.0-4.0); HEMATOCRIT 35.1 % (36-54); HEMOGLOBIN 11.7 g/dL (14.0-18.0); LYMPHOCYTES # (AUTO) 1.5 K/uL (1.0-5.5); LYMPHOCYTES % (AUTO) 29.7 % (20.5-51.5); MEAN CORPUSCULAR HEMOGLOBIN 33 pg (27-31); MEAN CORPUSCULAR HGB CONC 33 % (32-36); MEAN CORPUSCULAR VOLUME 99 fL (79.0-98.0); MONOCYTES # (AUTO) 0.6 K/uL (0.0-1.0); MONOCYTES % (AUTO) 11.8 % (1.7-9.3); NEUTROPHILS # (AUTO) 2.7 K/uL (1.8-7.7); NEUTROPHILS % (AUTO) 53.1 % (40.0-70.0); PLATELET COUNT (AUTO) 152 K/uL (130-430); RED BLOOD CELL COUNT(AUTO) 3.56 MIL/uL (4.2-6.2); RED CELL DISTRIBUTION WIDTH 14.3 % (9.0-15.0); WHITE BLOOD COUNT (AUTO) 5.1 K/uL (4.8-10.8)
[2022-06-13] MEDS: BUMETANIDE 1 MG TABLET PO SCH (09:00)
[2022-06-13] MEDS: APIXABAN 2.5 MG TABLET PO SCH (09:00)
[2022-06-13] MEDS: THEOPHYLLINE ANHYDROUS 80 MG/15 ML UDC PO SCH ×2 (09:00→12:01)
[2022-06-13] MEDS: ISOSORBIDE MONONITRATE 30 MG TAB.ER.24H PO SCH (09:00)
[2022-06-13] MEDS: TAMSULOSIN HCL 0.4 MG CAP PO SCH (09:00)
[2022-06-13] MEDS: LANOLIN ALCOHOL/MO/W.PET/CERES 57 GM CREAM..G. TP SCH (09:00)
[2022-06-13] MEDS: DOCUSATE SODIUM 100 MG CAPSULE PO SCH (09:00)
[2022-06-13] MEDS: LIDOCAINE PATCH 5% 1 EA TP SCH (09:00)
[2022-06-13] MEDS: FUROSEMIDE 40 MG TABLET PO SCH (09:00)
[2022-06-13] MEDS: BALSAM PERU/CASTOR OIL 56.7 GM OINT...G. TP SCH (09:00)
[2022-06-13 11:07] VITALS: BP_SYST 118
[2022-06-13] MEDS ORDERED: METO2.5T6 PO (11:16)
[2022-06-13] MEDS: HYDROcodone/ACETAMIN 5-325 MG TAB (NORCO/ VICODIN) PO PRN (11:29)
[2022-06-13] MEDS: CARBIDOPA/LEVODOPA 25/100 MG TABLET PO SCH ×2 (11:38→17:47)
[2022-06-13 17:18] VITALS: BP_SYST 123
[2022-06-13 19:04] VITALS: BP_SYST 145
== END 2022-06-13 21:10 | DRG 602 ==
LOC: SED 17:28 → STU 23:32
PROVIDERS: ADMIT Internal Medicine; ATTEND Internal Medicine
DX: L03.115 Cellulitis of right lower limb (principal); E43 Unspecified severe protein-calorie malnutrition; I50.43 Acute on chronic combined systolic (congestive) and diastolic (congestive) heart failure; I13.0 Hypertensive heart and chronic kidney disease with heart failure and stage 1 through stage 4 chronic kidney disease, or unspecified chronic kidney disease; N17.9 Acute kidney failure, unspecified; I48.20 Chronic atrial fibrillation, unspecified; I82.4Z2 Acute embolism and thrombosis of unspecified deep veins of left distal lower extremity; N13.30 Unspecified hydronephrosis; L03.116 Cellulitis of left lower limb; I25.10 Atherosclerotic heart disease of native coronary artery without angina pectoris; G20 Parkinson's disease; D64.9 Anemia, unspecified; D69.6 Thrombocytopenia, unspecified; N40.1 Benign prostatic hyperplasia with lower urinary tract symptoms; E88.09 Other disorders of plasma-protein metabolism, not elsewhere classified; R53.81 Other malaise; Z20.822 Contact with and (suspected) exposure to COVID-19; I87.8 Other specified disorders of veins; E87.6 Hypokalemia; N18.32 Chronic kidney disease, stage 3b; E83.42 Hypomagnesemia; E83.51 Hypocalcemia; Z79.899 Other long term (current) drug therapy; Z86.79 Personal history of other diseases of the circulatory system; Z86.718 Personal history of other venous thrombosis and embolism; Z79.01 Long term (current) use of anticoagulants; Z87.891 Personal history of nicotine dependence; Z99.3 Dependence on wheelchair; Z79.1 Long term (current) use of non-steroidal anti-inflammatories (NSAID); Z68.27 Body mass index [BMI] 27.0-27.9, adult
CPT/HCPCS: 36415; 71045; 73564; 76700-TC; 76770; 80048; 80053; 81000; 82272; 82607; 82728; 82746; 83540; 83550; 83735; 83880; 84100; 84153; 84484; 85025; 85044; 85651-TC; 86140; 87086; 93005; 93970; 96374; 96375; 96376; 97110-GP; 97112-GP; 97163-GP; 97530-GP; 99291; 99292; G0378; J0696; J1940; J2270; J3490; J7060

== ENCOUNTER 2022-11-28 12:20 | Emergency (ER) | payer OTHER ==
[~2022-11-28] VITALS: Ht 177.8 cm; Wt 89.8 kg
[~2022-11-28 12:20] MED LIST changes: -ACET-2634 PO; -AMOX250S64 PO; -CILO100T3 PO; -DIA250 PO; -LIDO1ADH22 TP; -LIP20 PO; -METH-634 PO; +METO2.5T6 PO
[2022-11-28] MEDS ORDERED: ISOS30TA9 PO (13:03)
[2022-11-28] MEDS ORDERED: CARB1TAB33 PO (13:03)
[2022-11-28] MEDS ORDERED: ALLO100T PO (13:03)
[2022-11-28] MEDS ORDERED: CARB-1 PO (13:03)
[2022-11-28] MEDS ORDERED: APIX2.5T PO (13:03)
[2022-11-28] MEDS ORDERED: SENN-295 PO (13:03)
[2022-11-28] MEDS ORDERED: FINE10TA PO (13:03)
[2022-11-28 13:06] VITALS: BP_SYST 123; PULSE 49; RESP 16; TEMP 97.5; O2SAT 97
[2022-11-28] MEDS ORDERED: ASPIRIN 81 MG TAB.CHEW PO ONE (13:30)
[2022-11-28 14:09] LABS: BASOPHILS % (AUTO) 0.7 % (0.0-2.0); EOSINOPHILS # (AUTO) 0.2 K/uL (0.0-0.4); EOSINOPHILS % (AUTO) 3.2 % (0.0-4.0); HEMATOCRIT 37.2 % (36-54); LYMPHOCYTES # (AUTO) 1.4 K/uL (1.0-5.5); LYMPHOCYTES % (AUTO) 27.9 % (20.5-51.5); MEAN CORPUSCULAR HEMOGLOBIN 33 pg (27-31); MEAN CORPUSCULAR HGB CONC 32 % (32-36); MEAN CORPUSCULAR VOLUME 102 fL (79.0-98.0); MONOCYTES # (AUTO) 0.6 K/uL (0.0-1.0); MONOCYTES % (AUTO) 11.1 % (1.7-9.3); NEUTROPHILS # (AUTO) 2.9 K/uL (1.8-7.7); NEUTROPHILS % (AUTO) 57.1 % (40.0-70.0); PLATELET COUNT (AUTO) 143 K/uL (130-430); RED BLOOD CELL COUNT(AUTO) 3.64 MIL/uL (4.2-6.2); RED CELL DISTRIBUTION WIDTH 14.3 % (9.0-15.0); WHITE BLOOD COUNT (AUTO) 5.1 K/uL (4.8-10.8)
[2022-11-28 14:24] LABS: ANION GAP 7 (5-15); CALCIUM 9.5 mg/dL (8.4-11.0); CARBON DIOXIDE 32 mmol/L (23-29); CHLORIDE 103 mmol/L (98-107); CREATININE 1.84 mg/dL (0.55-1.30); GLUCOSE 108 mg/dL (74-106); SODIUM SERUM 142 mmol/L (136-145); UREA NITROGEN, BLOOD 38 mg/dL (8-21)
[2022-11-28 14:35] LABS: ALANINE AMINOTRANSFERASE 8 U/L (12-78); ALBUMIN 3.5 g/dL (3.4-4.8); ASPARTATE AMINOTRANSFERASE 15 U/L (10-37); TOTAL BILIRUBIN 0.7 mg/dL (0.0-1.0); TOTAL PROTEIN, SERUM 7.2 g/dL (6.4-8.3)
[2022-11-28] MEDS ORDERED: FURO-149 PO (17:28)
[2022-11-28] MEDS ORDERED: FUROSEMIDE 20 MG TABLET PO ONE (17:30)
[2022-11-28 17:59] VITALS: BP_SYST 133; PULSE 78; RESP 17; O2SAT 98
== END 2022-11-28 17:59 | disposition home or self-care (01) ==
LOC: SED 12:20
DX: I11.0 Hypertensive heart disease with heart failure (principal); I50.9 Heart failure, unspecified; E78.5 Hyperlipidemia, unspecified; R22.43 Localized swelling, mass and lump, lower limb, bilateral; Z79.899 Other long term (current) drug therapy
CPT/HCPCS: 36415; 71045; 80053; 83880; 84484; 85025; 93005; 93970; 99285